=== PATIENT | female | born 2000 | race Caucasian/White ===

== ENCOUNTER 2024-06-19 19:55 | Emergency (ER) | payer BC ==
[2024-06-19 20:11] LABS: Glucose,Whole Blood 87 mg/dL (70-110)
--- NOTE | 2024-06-19 20:31 | ED ---
General Adult HPI - General Source: patient, family, RN notes reviewed Mode of arrival: ambulatory Limitations: no limitations <Mary Carmen Pastrana - Last Filed: 06/19/24 22:40> <Gisela Tran - Last Filed: 06/20/24 01:40> - General Chief complaint: Syncope Stated complaint: Low Blood Sugar Time Seen by Provider: 06/19/24 20:30 - History of Present Illness Initial comments: 23-year-old female with a past medical history significant of PCOS and iron deficiency anemia presenting to the ER for evaluation of syncopal episode and hypoglycemia. Patient reports she takes vitamins and Ozempic since November 2023 for PCOS. Patient states today while attempting to a bowel movement on the toilet she had a near syncopal episode. Patient denies straining during defecation. Her mother states she witnessed the event and ran and to prevent her from fallin jay of the toilet. Mother, at bedside, states she held patient's head against her chest until she came to. She states she did not fully lose consciousness. Patient reports after this episode she did place a Dexcom on her arm and was noted to have hypoglycemia in the 40s and 50s. Patient states her last dose of Ozempic was last 06/12/24. She did not take her dose today as her PCP instructed her not to due to the hypoglycemia. PCP instructed her to present to the ER today for evaluation. Patient did consume candy prior to arrival. Patient denies any fevers, chills, nausea, vomiting, current dizziness or lightheadedness, chest pain, shortness of breath, constipation/diarrhea, urinary complaints. (Mary Carmen Pastrana) - Related Data Allergies Allergy/AdvReac Type Severity Reaction Status Date / Time No Known Allergies Allergy Verified 06/19/24 20:04 Review of Systems ROS Other: All systems not noted in ROS Statement are negative. <Mary Carmen Pastrana - Last Filed: 06/19/24 22:40> ROS Other: All systems not noted in ROS Statement are negative. <Gisela Tran - Last Filed: 06/20/24 01:40> ROS Statement: Those systems with pertinent positive or pertinent negative responses have been documented in the HPI. 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 Absent: respiratory distress, wheezes, rales, rhonchi, stridor Cardiovascular Exam: Present: normal rhythm, tachycardia, normal heart sounds GI/Abdominal exam: Present: soft, normal bowel sounds. Absent: distended, tenderness, guarding, rebound, rigid Neurological exam: Present: alert, oriented X3, CN II-XII intact Skin exam: Present: warm, dry, intact, normal color. Absent: rash <Mary Carmen Pastrana - Last Filed: 06/19/24 22:40> Course Vital Signs 06/19/24 06/19/24 06/20/24 20:04 23:06 00:00 Temperature 98.3 F 98.1 F Pulse Rate 110 H 83 99 Respiratory 22 16 15 Rate Blood Pressure 117/77 108/64 111/71 O2 Sat by Pulse 98 98 99 Oximetry EKG Findings - EKG Comments: EKG Findings:: EKG taken at 20: 40 showing a sinus rhythm with sinus arrhythmia. No acute ST segment or T wave abnormalities. Normal axis. Ventricular rate 85, DC interval 159, QRS duration 80, QT/QTc 350/396. <Mary Carmen Pastrana - Last Filed: 06/19/24 22:40> Medical Decision Making - Lab Data Result diagrams: 06/19/24 20:54 06/19/24 20:54 - Radiology Data Radiology results: report reviewed, image reviewed <Mary Carmen Pastrana - Last Filed: 06/19/24 22:40> - Lab Data Result diagrams: 06/19/24 20:54 06/19/24 20:54 <Gisela Tran - Last Filed: 06/20/24 01:40> - Medical Decision Making Was pt. sent in by a medical professional or institution (, PA, PATIENT FINANCIAL SERVICES SPECIALIST, urgent care, hospital, or shelter...) When possible be specific @ -No Did you speak to anyone other than the patient for history (EMS, parent, family, police, friend...)? What history was obtained from this source @ -Patient's mother, aiding in HPI and past medical history. Did you review nursing and triage notes (agree or disagree)? Why? @ -I reviewed and agree with nursing and triage notes Were old charts reviewed (outside hosp., previous admission, EMS record, old EKG, old radiological studies, urgent care reports/EKG's, shelter records)? Report findings @ -No old charts were reviewed Differential Diagnosis (chest pain, altered mental status, abdominal pain women, abdominal pain men, vaginal bleeding, weakness, fever, dyspnea, syncope, headache, dizziness, GI bleed, back pain, seizure, CVA, palpatations, mental health, musculoskeletal)? @ -Differential Syncope:Valvular disease, hypertrophic cardiomyopathy, pulmonary embolism, tamponade, tachycardia, bradycardia, PA, hypovolemia, he morrhage, dissection, anemia, intracranial hemorrhage, seizure, hypoglycemia, carbon monoxide poisoning, this is not meant to be an all-inclusive list. EKG interpreted by me (3pts min.). @ -As above X-rays interpreted by me (1pt min.). @ -CXR interpreted me negative for acute cardiopulmonary process. CT interpreted by me (1pt min.). @ -None done U/S interpreted by me (1pt. min.). @ -None done What testing was considered but not performed or refused? (CT, X-rays, U/S, labs)? Why? @ -None What meds were considered but not given or refused? Why? @ -None Did you discuss the management of the patient with other professionals (professionals i.e. , PA, PATIENT FINANCIAL SERVICES SPECIALIST, lab, RT, psych nurse, licensed clinical social worker, employee development manager, teacher, senior administrative services officer, rn case manager hospice)? Give summary @ -No Was smoking cessation discussed for >3mins.? @ -No Was critical care preformed (if so, how long)? @ -No Were there social determinants of health that impacted care today? How? (Homelessness, low income, unemployed, alcoholism, drug addiction, transportation, low edu. Level, literacy, decrease access to med. care, longterm, rehab)? @ -No Was there de-escalation of care discussed even if they declined (Discuss DNR or withdrawal of care, Hospice)? DNR status @ -No What co-morbidities impacted this encounter? (DM, HTN, Smoking, COPD, CAD, Cancer, CVA, ARF, Chemo, Hep., AIDS, mental health diagnosis, sleep apnea, morbid obesity)? @ -PCOS, iron deficiency anemia Was patient admitted / discharged? Hospital course, mention meds given and route, prescriptions, significant lab abnormalities, going to OR and other pertinent info. @ -23-year-old female presented to ER for evaluation of syncope and hypoglycemia. History and physical exam completed. Upon examination, patient is tachycardic at 110 vitals otherwise stable. Patient in no signs of acute distress. Well-developed well-nourished. Given recent syncopal episodes syncopal workup will be obtained. CBC unremarkable. CMP unimpressive. Troponin undetectable. D-dimer pending at time of sign out to Gisela Reed at shift completion. (Zeina,Mary Carmen) Patient was signed out to me pending laboratory results and disposition. Coagulation profile including D-dimer is unremarkable. On reevaluation, patient states that she is feeling well. She is here for discharge at this time recommend close follow-up with primary care provider for continued evaluation. Case discussed with Dr. Rincno (Gisela Tran) - Lab Data Lab Results 06/19/24 06/19/24 06/19/24 Range/Units 20:08 20:52 20:54 WBC 7.6 (3.8-10.6) k/uL RBC 5.05 (3.80-5.40) m/uL Hgb 15.5 (11.4-16.0) gm/dL Hct 45.1 (34.0-46.0) % MCV 89.4 (80.0-100.0) fL MCH 30.8 (25.0-35.0) pg MCHC 34.4 (31.0-37.0) g/dL RDW 13.0 (11.5-15.5) % Plt Count 209 (150-450) k/uL MPV 7.4 Neutrophils % 65 % Lymphocytes % 27 % Monocytes % 5 % Eosinophils % 2 % Basophils % 0 % Neutrophils # 4.9 (1.3-7.7) k/uL Lymphocytes # 2.0 (1.0-4.8) k/uL Monocytes # 0.3 (0-1.0) k/uL Eosinophils # 0.1 (0-0.7) k/uL Basophils # 0.0 (0-0.2) k/uL PT (10.0-12.5) sec INR (<1.2) APTT (22.0-30.0) sec D-Dimer (<0.60) mg/L FEU Sodium (137-145) mmol/L Potassium (3.5-5.1) mmol/L Chloride (98-107) mmol/L Carbon Dioxide (22-30) mmol/L Anion Gap mmol/L BUN (7-17) mg/dL Creatinine (0.52-1.04) mg/dL Est GFR (CKD-EPI)AfAm (>60 ml/min/1.73 sqM) Est GFR (CKD-EPI)NonAf (>60 ml/min/1.73 sqM) Glucose (74-99) mg/dL POC Glucose (mg/dL) 87 74 (70-110) mg/dL POC Glu Implementation Specialist ID MARK Little Calcium (8.4-10.2) mg/dL Total Bilirubin (0.2-1.3) mg/dL AST (14-36) U/L ALT (4-34) U/L Alkaline Phosphatase (38-126) U/L Troponin I (0.000-0.034) ng/mL Total Protein (6.3-8.2) g/dL Albumin (3.5-5.0) g/dL Urine Color Urine Appearance (Clear) Urine pH (5.0-8.0) Ur Specific [place] (1.001-1.035) Urine Protein (Negative) Urine Glucose (UA) (Negative) Urine Ketones (Negative) Urine Blood (Negative) Urine Nitrite (Negative) Urine Bilirubin (Negative) Urine Urobilinogen (<2.0) mg/dL Ur Leukocyte Esterase (Negative) Urine RBC (0-5) /hpf Urine WBC (0-5) /hpf Ur Squamous Epith Cells (0-4) /hpf Urine Bacteria (None) /hpf Urine Mucus (None) /hpf Urine HCG, Qual (Not Detectd) 12/22/24 12/22/24 12/22/24 Range/Units 20:54 21:20 21:29 WBC (3.8-10.6) k/uL RBC (3.80-5.40) m/uL Hgb (11.4-16.0) gm/dL Hct (34.0-46.0) % MCV (80.0-100.0) fL MCH (25.0-35.0) pg MCHC (31.0-37.0) g/dL RDW (11.5-15.5) % Plt Count (150-450) k/uL MPV Neutrophils % % Lymphocytes % % Monocytes % % Eosinophils % % Basophils % % Neutrophils # (1.3-7.7) k/uL Lymphocytes # (1.0-4.8) k/uL Monocytes # (0-1.0) k/uL Eosinophils # (0-0.7) k/uL Basophils # (0-0.2) k/uL PT (10.0-12.5) sec INR (<1.2) APTT (22.0-30.0) sec D-Dimer (<0.60) mg/L FEU Sodium 138 (137-145) mmol/L Potassium 5.3 H (3.5-5.1) mmol/L Chloride 108 H (98-107) mmol/L Carbon Dioxide 22 (22-30) mmol/L Anion Gap 8 mmol/L BUN 9 (7-17) mg/dL Creatinine 0.51 L (0.52-1.04) mg/dL Est GFR (CKD-EPI)AfAm >90 (>60 ml/min/1.73 sqM) Est GFR (CKD-EPI)NonAf >90 (>60 ml/min/1.73 sqM) Glucose 82 (74-99) mg/dL POC Glucose (mg/dL) (70-110) mg/dL POC Glu Implementation Specialist ID Calcium 9.5 (8.4-10.2) mg/dL Total Bilirubin 0.8 (0.2-1.3) mg/dL AST 28 (14-36) U/L ALT 16 (4-34) U/L Alkaline Phosphatase 70 (38-126) U/L Troponin I <0.012 (0.000-0.034) ng/mL Total Protein 8.1 (6.3-8.2) g/dL Albumin 4.8 (3.5-5.0) g/dL Urine Color Colorless Urine Appearance Clear (Clear) Urine pH 5.5 (5.0-8.0) Ur Specific [place] 1.009 (1.001-1.035) Urine Protein Negative (Negative) Urine Glucose (UA) Negative (Negative) Urine Ketones 1+ H (Negative) Urine Blood Negative (Negative) Urine Nitrite Negative (Negative) Urine Bilirubin Negative (Negative) Urine Urobilinogen <2.0 (<2.0) mg/dL Ur Leukocyte Esterase Small H (Negative) Urine RBC <1 (0-5) /hpf Urine WBC 2 (0-5) /hpf Ur Squamous Epith Cells 2 (0-4) /hpf Urine Bacteria Few H (None) /hpf Urine Mucus Rare H (None) /hpf Urine HCG, Qual (Not Detectd) 06/19/24 06/19/24 06/19/24 Range/Units 21:29 21:33 22:46 WBC (3.8-10.6) k/uL RBC (3.80-5.40) m/uL Hgb (11.4-16.0) gm/dL Hct (34.0-46.0) % MCV (80.0-100.0) fL MCH (25.0-35.0) pg MCHC (31.0-37.0) g/dL RDW (11.5-15.5) % Plt Count (150-450) k/uL MPV Neutrophils % % Lymphocytes % % Monocytes % % Eosinophils % % Basophils % % Neutrophils # (1.3-7.7) k/uL Lymphocytes # (1.0-4.8) k/uL Monocytes # (0-1.0) k/uL Eosinophils # (0-0.7) k/uL Basophils # (0-0.2) k/uL PT 10.3 (10.0-12.5) sec INR 0.9 (<1.2) APTT 23.0 (22.0-30.0) sec D-Dimer 0.22 (<0.60) mg/L FEU Sodium (137-145) mmol/L Potassium (3.5-5.1) mmol/L Chloride (98-107) mmol/L Carbon Dioxide (22-30) mmol/L Anion Gap mmol/L BUN (7-17) mg/dL Creatinine (0.52-1.04) mg/dL Est GFR (CKD-EPI)AfAm (>60 ml/min/1.73 sqM) Est GFR (CKD-EPI)NonAf (>60 ml/min/1.73 sqM) Glucose (74-99) mg/dL POC Glucose (mg/dL) 87 (70-110) mg/dL POC Glu Implementation Specialist ID Adam Little Calcium (8.4-10.2) mg/dL Total Bilirubin (0.2-1.3) mg/dL AST (14-36) U/L ALT (4-34) U/L Alkaline Phosphatase (38-126) U/L Troponin I (0.000-0.034) ng/mL Total Protein (6.3-8.2) g/dL Albumin (3.5-5.0) g/dL Urine Color Urine Appearance (Clear) Urine pH (5.0-8.0) Ur Specific [place] (1.001-1.035) Urine Protein (Negative) Urine Glucose (UA) (Negative) Urine Ketones (Negative) Urine Blood (Negative) Urine Nitrite (Negative) Urine Bilirubin (Negative) Urine Urobilinogen (<2.0) mg/dL Ur Leukocyte Esterase (Negative) Urine RBC (0-5) /hpf Urine WBC (0-5) /hpf Ur Squamous Epith Cells (0-4) /hpf Urine Bacteria (None) /hpf Urine Mucus (None) /hpf Urine HCG, Qual Not Detected (Not Detectd) 06/19/24 Range/Units 22:53 WBC (3.8-10.6) k/uL RBC (3.80-5.40) m/uL Hgb (11.4-16.0) gm/dL Hct (34.0-46.0) % MCV (80.0-100.0) fL MCH (25.0-35.0) pg MCHC (31.0-37.0) g/dL RDW (11.5-15.5) % Plt Count (150-450) k/uL MPV Neutrophils % % Lymphocytes % % Monocytes % % Eosinophils % % Basophils % % Neutrophils # (1.3-7.7) k/uL Lymphocytes # (1.0-4.8) k/uL Monocytes # (0-1.0) k/uL Eosinophils # (0-0.7) k/uL Basophils # (0-0.2) k/uL PT (10.0-12.5) sec INR (<1.2) APTT (22.0-30.0) sec D-Dimer (<0.60) mg/L FEU Sodium (137-145) mmol/L Potassium (3.5-5.1) mmol/L Chloride (98-107) mmol/L Carbon Dioxide (22-30) mmol/L Anion Gap mmol/L BUN (7-17) mg/dL Creatinine (0.52-1.04) mg/dL Est GFR (CKD-EPI)AfAm (>60 ml/min/1.73 sqM) Est GFR (CKD-EPI)NonAf (>60 ml/min/1.73 sqM) Glucose (74-99) mg/dL POC Glucose (mg/dL) 74 (70-110) mg/dL POC Glu Implementation Specialist ID Ursula Shelleysten Calcium (8.4-10.2) mg/dL Total Bilirubin (0.2-1.3) mg/dL AST (14-36) U/L ALT (4-34) U/L Alkaline Phosphatase (38-126) U/L Troponin I (0.000-0.034) ng/mL Total Protein (6.3-8.2) g/dL Albumin (3.5-5.0) g/dL Urine Color Urine Appearance (Clear) Urine pH (5.0-8.0) Ur Specific [place] (1.001-1.035) Urine Protein (Negative) Urine Glucose (UA) (Negative) Urine Ketones (Negative) Urine Blood (Negative) Urine Nitrite (Negative) Urine Bilirubin (Negative) Urine Urobilinogen (<2.0) mg/dL Ur Leukocyte Esterase (Negative) Urine RBC (0-5) /hpf Urine WBC (0-5) /hpf Ur Squamous Epith Cells (0-4) /hpf Urine Bacteria (None) /hpf Urine Mucus (None) /hpf Urine HCG, Qual (Not Detectd) Disposition <Mary Carmen Pastrana - Last Filed: 06/19/24 22:40> Is patient prescribed a controlled substance at d/c from ED?: No Time of Disposition: 23:49 <Gisela Tran - Last Filed: 06/20/24 01:40> Clinical Impression: Near syncope, History of hypoglycemia Disposition: HOME SELF-CARE Condition: Good Instructions (If sedation given, give patient instructions): What to Do if Your Blood Sugar is Low (ED) Additional Instructions: Please return to the Emergency Department if symptoms worsen or any other concerns. Referrals: Alo Sheehan DO [Primary Care Provider] - 1-2 days
[2024-06-19] MEDS: SODIUM CHLORIDE 0.9% 1,000 ML IV STA (20:53)
[2024-06-19 20:55] LABS: Glucose,Whole Blood 74 mg/dL (70-110)
[2024-06-19 20:59] LABS: Basophils % (A) 0 %; Eosinophils # (A) 0.1 k/uL (0-0.7); Eosinophils % (A) 2 %; HCT 45.1 % (34.0-46.0); HGB 15.5 gm/dL (11.4-16.0); Lymphocytes % (A) 27 %; MCH 30.8 pg (25.0-35.0); MCHC 34.4 g/dL (31.0-37.0); MCV 89.4 fL (80.0-100.0); Mean Platelet Volume 7.4; Monocytes # (A) 0.3 k/uL (0-1.0); Monocytes % (A) 5 %; Neutrophils # (A) 4.9 k/uL (1.3-7.7); Neutrophils % (A) 65 %; Platelet Count 209 k/uL (150-450); RBC 5.05 m/uL (3.80-5.40); WBC 7.6 k/uL (3.8-10.6)
[2024-06-19 21:09] LABS: ALT 16 U/L (4-34); African American GFR (CKD) >90 (>60 ml/min/1.73 sqM); Anion Gap 8 mmol/L; Blood Urea Nitrogen 9 mg/dL (7-17); Calcium 9.5 mg/dL (8.4-10.2); Carbon Dioxide 22 mmol/L (22-30); Chloride 108 mmol/L (98-107); Glucose 82 mg/dL (74-99); Non-African American GFR(CKD) >90 (>60 ml/min/1.73 sqM); Sodium 138 mmol/L (137-145); Total Bilirubin 0.8 mg/dL (0.2-1.3)
--- NOTE | 2024-06-19 21:16 | XR ---
EXAMINATION TYPE: XR chest 2V DATE OF EXAM: 06/19/2024 9:02 PM COMPARISON: None CLINICAL INDICATION: Female, 23 years old with history of syncope; TECHNIQUE: XR chest 2V Frontal and lateral views of the chest. FINDINGS: Lungs/Pleura: There is no evidence of pleural effusion, focal consolidation, or pneumothorax. Pulmonary vascularity: Unremarkable. Heart/mediastinum: Cardiomediastinal silhouette is unremarkable. Musculoskeletal: No acute osseous pathology. IMPRESSION: No acute cardiopulmonary disease/process. [facility], , 06/19/2024 9:13 PM
[2024-06-19 21:19] LABS: AST 28 U/L (14-36); Albumin 4.8 g/dL (3.5-5.0); Alkaline Phosphatase 70 U/L (38-126); Potassium 5.3 mmol/L (3.5-5.1); Total Protein 8.1 g/dL (6.3-8.2)
[2024-06-19 21:36] LABS: Glucose,Whole Blood 87 mg/dL (70-110)
[2024-06-19 21:40] LABS: Appearance,Urine Clear (Clear); Bacteria,Urine Few /hpf; Bilirubin,Urine Negative (Negative); Blood,Urine Negative (Negative); Color,Urine Colorless; Glucose,Urine (UA) Negative (Negative); Ketones,Urine 1+ (Negative); Leukocyte Esterase,Urine Small (Negative); Mucus,Urine Rare /hpf; Nitrite,Urine Negative (Negative); PH, Urine 5.5 (5.0-8.0); Protein,Urine Negative (Negative); RBC,Urine <1 /hpf (0-5); Specific Gravity,Urine 1.009 (1.001-1.035); Squamous Epithelial Cell,Urine 2 /hpf (0-4); Urobilinogen,Urine <2.0 mg/dL (<2.0); WBC,Urine 2 /hpf (0-5)
[2024-06-19 22:55] LABS: Glucose,Whole Blood 74 mg/dL (70-110)
[2024-06-19 23:07] VITALS: TEMP 98.1
[2024-06-19 23:30] LABS: INR 0.9 (<1.2); Prothrombin Time 10.3 sec (10.0-12.5)
[2024-06-20 00:02] VITALS: BP 111/71; PULSE 99; RESP 15
== END 2024-06-20 00:01 | disposition home or self-care (01) ==
LOC: EC 19:55
DX: R55 Syncope and collapse (principal); E16.2 Hypoglycemia, unspecified; D50.9 Iron deficiency anemia, unspecified; E28.2 Polycystic ovarian syndrome
CPT/HCPCS: 36415; 71046; 80053; 81001; 81025; 84484; 85025; 85379; 85610; 85730; 93005; 96360; 99284